=== PATIENT | male | born 1960 | race Caucasian/White ===

== ENCOUNTER 2016-09-05 17:39 | Emergency (ER) | payer MEDICARE ==
[~2016-09-05] VITALS: Ht 170.2 cm; Wt 76.7 kg
[2016-09-05 18:30] LABS: HEMATOCRIT 41.3 % (38.0-50.0); MCH 29.6 PG (29.0-34.0); MCHC 34.4 G/DL (30.0-36.0); MCV 86.2 FL (86-99); MEAN PLAT.VOLUME 8.9 uM^3 (9.0-12.4); PLATELET COUNT 244 K/uL (156-360); RBC DIS.WIDTH-CV 13.1 % (11.8-14.6); RBC DIS.WIDTH-SD 41.4 % (39-53); RED BLOOD COUNT 4.79 M/uL (4.00-5.50); WHITE BLOOD COUNT 5.8 K/uL (4.1-10.2)
[2016-09-05 18:45] LABS: ADD MIUA? NO; BILIRUBIN NEGATIVE; BLOOD NEGATIVE; COLOR STRAW ((YELLOW)); GLUCOSE (STRIP) NEGATIVE; KETONES NEGATIVE; LEUKOCYTES NEGATIVE; NITRITE NEGATIVE; PROTEIN (STRIP) NEGATIVE; SPECIFIC GRAVITY 1.004 (1.000-1.030); UCUL ADDED? NO; UROBILINOGEN 0.2 MG/DL (0.2-1.0)
[2016-09-05 18:45] LABS: CHLORIDE 105 mEq/L (99-109); POTASSIUM 3.8 mEq/L (3.7-5.4); SODIUM 136 mEq/L (136-147)
[2016-09-05 18:47] LABS: GLUCOSE 112 mg/dL (70-99)
[2016-09-05 18:48] LABS: ANION GAP 8 MEQ/L (2-14)
[2016-09-05 18:49] LABS: TOTAL BILIRUBIN 0.2 mg/dL (0.0-1.0)
[2016-09-05 18:51] LABS: ALKALINE PHOSPHATASE 78 IU/L (3-129); GFR ESTIMATE (CALCULATED) > 59 mL/min/
[2016-09-05 18:52] LABS: UREA NITROGEN (BUN) 7 mg/dL (9-23)
[2016-09-05 18:54] LABS: LIPASE 32 U/L (1.0-51.0)
[2016-09-05] MEDS ORDERED: LEVAQUIN500 MG PO (20:50)
[2016-09-05] MEDS ORDERED: ZOFRAN ODT4 MG PO (20:50)
[2016-09-05] MEDS ORDERED: BENTYL20 MG PO (20:50)
[2016-09-05 21:09] VITALS: BP 123/67
== END 2016-09-05 21:11 | disposition home or self-care (01) ==
LOC: EME 17:39 → RME 17:39
DX: A04.9 Bacterial intestinal infection, unspecified (principal); R11.2 Nausea with vomiting, unspecified; N40.0 Benign prostatic hyperplasia without lower urinary tract symptoms; F17.200 Nicotine dependence, unspecified, uncomplicated
CPT/HCPCS: 74177; 80053; 81003; 83690; 85027; 99281; 99283; J7040